=== PATIENT | female | born 1995 | race Caucasian/White ===

== ENCOUNTER 2020-03-25 04:58 | Inpatient (IN) | payer OTHER, SELFPAY ==
[2020-03-25] VITALS (150 sets, daily range): BP systolic 113–165; BP diastolic 53–107; PULSE 64–205; RESP 16; TEMP 36.4–37.2; O2SAT 88–100; BMI 32.8
--- NOTE | 2020-03-25 04:58 | LDADM ---
This patient, Marly Dowell, was admitted to Labor/Delivery/Recovery 103 on 03/25/20 at 04:58. Plans for labor, pain management and were discussed with patient. Patient/family oriented to hospital policies and general routines including ID bracelet, bed and alarms, visiting hours, pain management, procedures, bathroom and other care routines, personal items, smoking policy, room service/diet and guest tray routines, infant security routines, and visiting hours. Patient/Family are encouraged to report perceived risks to care and to ask questions if they do not understand what they are told or what they should do. See OBIX for further documentation.
--- NOTE | 2020-03-25 06:08 | WPDANESEPP ---
Anes - Eval Pre Procedure Procedure: Labor epidural Date/Time: 03/25/20 06:08 Surgeon: michael Preop Diagnosis: pain during labor Pre Op Diagnosis: IOL Patient Data Age: 24 Gender: F Height: 1.75 m Weight: 101 kg Last Vital Signs Pulse 84 03/25/20 06:00 BP 150/103 H 03/25/20 06:00 Allergies Allergy/AdvReac Type Severity Reaction Status Date / Time No Known Allergies Allergy Verified 04/11/15 00:27 Patient hx anesthesia problems: none Family hx anesthesia problems: none PMFSH Social History Social History Smoking packs per day: 1 Smoking cigarettes per day: 20.0 Years smoked: 5 Smoking pack-years: 5.00 Smoking status: Former smoker Substance use: never Gender identity (if verbalized by the patient): Female Sexual Orientation (if Verbalized by the Patient): Straight or Heterosexual Spiritual care concerns: No Exam Day of Procedure 03/25/20 06:08
[2020-03-25 06:24] LABS: Basophils Percent Auto 0.2 % (0.2-1.2); Eosinophils Absolute Auto 0.1 K/mm3 (0-0.3); Eosinophils Percent Auto 0.9 % (0-4.4); Immature Granulocyte Absolute 0.04 K/mm3 (0.00-0.031); Immature Granulocyte Percent A 0.5 % (0-0.5); Lymphocytes Absolute Auto 1.69 K/mm3 (0.9-3.2); Lymphocytes Percent Auto 21.1 % (18.3-44.2); Mean Corpuscular HGB Conc 32.4 g/dl (32-36); Mean Corpuscular Hemoglobin 26.8 pg (26-34); Mean Corpuscular Volume 82.9 fl (80-100); Mean Platelet Volume 9.1 fl (7.4-10.4); Monocytes Absolute Auto 0.5 K/mm3 (0.1-0.6); Monocytes Percent Auto 6.5 % (2.6-8.5); Neutrophils Absolute Auto 5.7 K/mm3 (1.3-6.7); Neutrophils Percent Auto 70.8 % (45.5-73.1); Platelet Count Result 298 k/mm3 (150-375); Red Cell Distribution Width 12.8 % (11.5-14.5)
--- NOTE | 2020-03-25 06:28 | P.HP_ITS ---
H&P: HPI History of Present Illness Date/Time: 03/25/20 06:28 Chief Complaint: iol Narrative: Marly Dowell is a 24 year old female 011 whose last menstrual period was 06/26/2019, EDC is 04/01/2020, confirme d by 8 week ultrasound presents at 39 weeks for induction of labor. She has had mildly elevated blood pressures. She is positive for group B strep. Her cervix is favorable. Review of Systems Review of Systems: All systems reviewed & are unremarkable except as noted in HPI and below PMFSH Social History Social History Smoking packs per day: 1 Smoking cigarettes per day: 20.0 Years smoked: 5 Smoking pack-years: 5.00 Smoking status: Former smoker Substance use: never Gender identity (if verbalized by the patient): Female Sexual Orientation (if Verbalized by the Patient): Straight or Heterosexual Spiritual care concerns: No Meds Home Medications and Allergies Home Medications Medication Instructions Recorded Confirmed Type vit no.[id number] 1 tablet DAILY 03/25/20 03/25/20 History [Classic ] Allergies Allergy/AdvReac Type Severity Reaction Status Date / Time No Known Allergies Allergy Verified 04/11/15 00:27 Vital Signs Vital Signs - 24 hr 03/25/20 05:29 03/25/20 05:30 03/25/20 05:45 Pulse Rate 73 95 81 Blood Pressure 152/99 H 154/97 H 150/90 H 03/25/20 06:00 Pulse Rate 84 Blood Pressure 150/103 H Exam Const: General: no acute distress Eyes: General: appearance normal, both eyes and all related structures Neck: Neck: supple and no JVD Thyroid: thyroid normal Resp: Effort & Inspection: normal respiratory effort Auscultation: clear to auscultation bilaterally Cardio: Rate: regular rate Rhythm: regular rhythm GI: Inspection: non-distended GI Palp: Yes Soft to palpation, No Tenderness to palpation present (GI) and No Guarding due to palpation present (GI) Auscultation: normal bowel sounds : External Female Exam: normal external appearance Speculum Exam - Vagina: normal appearance of the vagina Speculum Exam - Cervix: Cervical os closed (Cervix 3/75/1. AROM clear. FHTs reassuring.) Skin: General skin exam: no rashes or lesions noted Extrem: General: normal to inspection and no edema Psych: Mental Status: mental status grossly normal Affect: normal affect H&P: Results Labs Labs: Short CBC 03/25/20 Range/Units 06:17 WBC 8.0 (4.5-10.0) K/mm3 Hgb 11.0 L (12.0-15.0) g/dL Hct 34.0 L (37.0-47.0) % Plt Count 298 (150-375) k/mm3 Assessment and Plan Additional Plan Impression: Term /positive group B strep Plan: Medical induction of labor. Spontaneous vaginal delivery is expected. Group B strep prophylaxis is being undertaken. She has an epidural candidate
[2020-03-25] MEDS: LACTATED RINGERS 1,000 ML 125 ML IV CONT ×2 (06:30→12:52)
[2020-03-25] MEDS: AMPICILLIN 2 GM/NS 100 ML 2 GM/100 ML BAG IVPB (06:31)
[2020-03-25] MEDS: OXYTOCIN 30 UNITS/NS 500 ML 30 UNITS/500 ML BAG IV CONT (06:31)
[2020-03-25 06:38] LABS: Alanine Aminotransferase 18 U/L (4-35); Albumin Level 3.5 g/dL (3.5-5.1); Alkaline Phosphatase 128 U/L (38-126); Anion Gap 6 mmol/L (8-16); Aspartate Amino Transferase 26 U/L (14-36); Bilirubin,Total 0.5 mg/dL (0.2-1.3); Blood Urea Nitrogen 9 mg/dL (7-17); Carbon Dioxide 23 mmol/L (22-30); Chloride 106 mmol/L (98-107); Estimated CRCL calculation 219 ml/min; Estimated Glomerular Filt Rate > 60; Glucose 81 mg/dL (65-105); Sodium 135 mmol/L (137-145); Uric Acid 5.3 mg/dL (2.5-7.5)
[2020-03-25 07:21] LABS: HIV 1/2 Ab P24 Ag Result Negative (Negative)
[2020-03-25] MEDS: AMPICILLIN 1 GM/NS 50 ML 1 GM/50 ML BAG IVPB ×2 (10:33→14:44)
[2020-03-25 10:49] LABS: Rapid Plasma Reagin Non-Reactive (NonReactive)
--- NOTE | 2020-03-25 11:09 | PM.OBPNVD ---
OB - PN: Subj Subjective Date/time seen: 03/25/20 11:09 cx 4 by rn exam fhts k amp x 2 sofar epidural soon OB - PN: Obj Data Labs CBC & Chem 7: 03/25/20 06:17 03/25/20 06:17 Labs: Laboratory Results - last 24 hr 03/25/20 03/25/20 03/25/20 06:17 06:17 06:17 WBC 8.0 RBC 4.10 L Hgb 11.0 L Hct 34.0 L MCV 82.9 MCH 26.8 MCHC 32.4 RDW 12.8 Plt Count 298 MPV 9.1 Immature Gran % (Auto) 0.5 Neut % (Auto) 70.8 Lymph % (Auto) 21.1 [place] % (Auto) 6.5 Eos % (Auto) 0.9 Baso % (Auto) 0.2 Lymph # (Auto) 1.69 [place] # (Auto) 0.5 Eos # (Auto) 0.1 Baso # (Auto) 0.0 Abs Immat Gran (auto) 0.04 H Absolute Neuts (auto) 5.7 Absolute Nucleated RBC 0.0 Nucleated RBC % 0.0 Sodium Potassium Chloride Carbon Dioxide Anion Gap BUN Creatinine Estim Creat Clear Calc Estimated GFR Glucose Uric Acid 5.3 Calcium Total Bilirubin AST ALT Alkaline Phosphatase Total Protein Albumin RPR HIV 1&2 Ab/P24 Ag 4thGn Negative Blood Type Antibody Screen 03/25/20 03/25/20 03/25/20 06:17 06:17 06:17 WBC RBC Hgb Hct MCV MCH MCHC RDW Plt Count MPV Immature Gran % (Auto) Neut % (Auto) Lymph % (Auto) [place] % (Auto) Eos % (Auto) Baso % (Auto) Lymph # (Auto) [place] # (Auto) Eos # (Auto) Baso # (Auto) Abs Immat Gran (auto) Absolute Neuts (auto) Absolute Nucleated RBC Nucleated RBC % Sodium 135 L Potassium 4.0 Chloride 106 Carbon Dioxide 23 Anion Gap 6 L BUN 9 Creatinine 0.40 L Estim Creat Clear Calc 219 Estimated GFR > 60 Glucose 81 Uric Acid Calcium 9.0 Total Bilirubin 0.5 AST 26 ALT 18 Alkaline Phosphatase 128 H Total Protein 6.0 L Albumin 3.5 RPR Non-reactive HIV 1&2 Ab/P24 Ag 4thGn Blood Type B Positive Antibody Screen Negative OB - PN A/P Time Spent With Patient Time: Total time spent is greater than 50% in coordination of care (as documented) at patient's floor/unit and/or counseling patient:
--- NOTE | 2020-03-25 16:25 | P.PNOB_ITS ---
OB - PN: Subj Subjective Date/time seen: 03/25/20 16:25 cx 7 by rn exam fhts reassuring OB - PN: Obj Data Labs CBC & Chem 7: 03/25/20 06:17 03/25/20 06:17 Labs: Laboratory Results - last 24 hr 03/25/20 03/25/20 03/25/20 06:17 06:17 06:17 WBC 8.0 RBC 4.10 L Hgb 11.0 L Hct 34.0 L MCV 82.9 MCH 26.8 MCHC 32.4 RDW 12.8 Plt Count 298 MPV 9.1 Immature Gran % (Auto) 0.5 Neut % (Auto) 70.8 Lymph % (Auto) 21.1 [place] % (Auto) 6.5 Eos % (Auto) 0.9 Baso % (Auto) 0.2 Lymph # (Auto) 1.69 [place] # (Auto) 0.5 Eos # (Auto) 0.1 Baso # (Auto) 0.0 Abs Immat Gran (auto) 0.04 H Absolute Neuts (auto) 5.7 Absolute Nucleated RBC 0.0 Nucleated RBC % 0.0 Sodium Potassium Chloride Carbon Dioxide Anion Gap BUN Creatinine Estim Creat Clear Calc Estimated GFR Glucose Uric Acid 5.3 Calcium Total Bilirubin AST ALT Alkaline Phosphatase Total Protein Albumin RPR HIV 1&2 Ab/P24 Ag 4thGn Negative Blood Type Antibody Screen 03/25/20 03/25/20 03/25/20 06:17 06:17 06:17 WBC RBC Hgb Hct MCV MCH MCHC RDW Plt Count MPV Immature Gran % (Auto) Neut % (Auto) Lymph % (Auto) [place] % (Auto) Eos % (Auto) Baso % (Auto) Lymph # (Auto) [place] # (Auto) Eos # (Auto) Baso # (Auto) Abs Immat Gran (auto) Absolute Neuts (auto) Absolute Nucleated RBC Nucleated RBC % Sodium 135 L Potassium 4.0 Chloride 106 Carbon Dioxide 23 Anion Gap 6 L BUN 9 Creatinine 0.40 L Estim Creat Clear Calc 219 Estimated GFR > 60 Glucose 81 Uric Acid Calcium 9.0 Total Bilirubin 0.5 AST 26 ALT 18 Alkaline Phosphatase 128 H Total Protein 6.0 L Albumin 3.5 RPR Non-reactive HIV 1&2 Ab/P24 Ag 4thGn Blood Type B Positive Antibody Screen Negative OB - PN A/P Time Spent With Patient Time: Total time spent is greater than 50% in coordination of care (as documented) at patient's floor/unit and/or counseling patient:
--- NOTE | 2020-03-25 19:30 | PM.OBPRVD ---
OB - Delivery Note Procedure Delivery date: 03/25/20 Intrapartal events: None Induction method: AROM Delivery augmentation: pitocin Delivery monitor: external FHT Route of delivery: Episiotomy description: None Laceration Description: None Quantitative Blood Loss (ml): 58 Anesthesia type: Epidural Disposition: floor Complications: amp x 3 for gbs [place] Baby Date of : 03/25/20 Time of : 19:17 Weeks of gestation at delivery: 39 gender: Female Weight (pounds): 7 Weight (ounces): 15 presentation: vertex position: Right Occiput Anterior Placenta delivery description: Spontaneous cord vessel description: 3 Vessels and Clamped/Cut score one minute: 8 score five minutes: 9
[2020-03-25] MEDS: OXYTOCIN 30 UNITS/NS 500 ML 30 UNITS/500 ML BAG 125 UNITS IV CONT (19:42)
[2020-03-25] MEDS: WITCH HAZEL 40 PADS 1 PAD TOPICAL (21:41)
--- NOTE | 2020-03-25 22:00 | OBPPTRN ---
Patient transferred to post room #288 via wheelchair. Support person present. Oriented to unit, room, information board, rooming in, admission packet and security measures. Patient verbalizes understanding. with patient.
[2020-03-26 04:41] LABS: Hemoglobin 10.4 g/dL (12.0-15.0)
--- NOTE | 2020-03-26 07:17 | PM.OBPNVD ---
OB - PN: Subj Subjective Date/time seen: 03/26/20 07:17 Patient comments: no complaints and pain well controlled baby status: doing well and nursing well OB - PN: Obj Data Labs CBC & Chem 7: 03/26/20 04:07 03/25/20 06:17 Labs: Laboratory Results - last 24 hr 03/25/20 03/25/20 03/25/20 06:17 06:17 06:17 Hgb Hct RPR Non-reactive HIV 1&2 Ab/P24 Ag 4thGn Negative Blood Type B Positive Antibody Screen Negative 03/26/20 04:07 Hgb 10.4 L Hct 32.0 L RPR HIV 1&2 Ab/P24 Ag 4thGn Blood Type Antibody Screen OB - PN A/P Plan day: 1 Plan: routine care Time Spent With Patient Time: Total time spent is greater than 50% in coordination of care (as documented) at patient's floor/unit and/or counseling patient: Time with patient: less than 15 minutes Review of Systems Review of Systems: All systems reviewed & are unremarkable except as noted in HPI and below Exam Const: General: no acute distress Eyes: General: appearance normal, both eyes and all related structures Neck: Neck: supple and no JVD Thyroid: thyroid normal Resp: Effort & Inspection: normal respiratory effort Auscultation: clear to auscultation bilaterally Cardio: Rate: regular rate Rhythm: regular rhythm GI: Inspection: non-distended GI Palp: Yes Soft to palpation, No Tenderness to palpation present (GI) and No Guarding due to palpation present (GI) Auscultation: normal bowel sounds : General: Yes bladder normal to palpation External Female Exam: normal external appearance Speculum Exam - Vagina: normal vaginal discharge and No vaginal bleeding Speculum Exam - Cervix: nontender Bimanual exam- vagina & uterus: bladder normal to palpation and No Cervical tenderness present OB/external & speculum: No vaginal bleeding Skin: General skin exam: no rashes or lesions noted Extrem: General: normal to inspection and no edema Psych: Mental Status: mental status grossly normal Affect: normal affect
[2020-03-26 08:00] VITALS: BP 149/91; PULSE 86; RESP 20; TEMP 36.6
[2020-03-26] MEDS: MULTIVIT/MIN/PREN/FOL AC/IRON TABLET 1 TAB PO (08:21)
[2020-03-26] MEDS: DOCUSATE SODIUM 100 MG CAPSULE PO ×2 (08:21→16:40)
--- NOTE | 2020-03-26 08:54 | WPDANLDPN2 ---
Anes-Prog Note L&D Date/Time: 03/26/20 08:54 Comfortable throughout: labor and delivery Neuraxial method: epidural Epidural/Spinal procedure site: clean & non-tender Neuro status: Neuro function grossly intact. Cardiovascular status: normal Respiratory status: normal Airway patency: baseline Mental status: baseline Post-Op hydration status: normal Vital Signs: Last Vital Signs Temp 98.2 F 03/25/20 22:00 Pulse 89 03/25/20 22:00 Resp 16 03/25/20 22:00 BP 142/80 H 03/25/20 22:00 Pulse Ox 99 03/25/20 22:00 Pain score (VAS): 0/10 I/O: Intake & Output 03/25/20 03/26/20 03/26/20 23:59 07:59 15:59 Intake Total 1500 Output Total 145 Balance 1355 Post-procedural complaints: none Patient feedback: Patient satisfied with anesthetic care.
--- NOTE | 2020-03-26 12:22 | PC.NURSE ---
Consulted with patient, reviewed feeding cues, frequencies, duration of feedings, feeding elimination flow sheet, and signs of adequate intake. Mother verbalizes she is able to independently latch with appropriate positioning/alignment. She denies any nipple discomfort, is feeding as required and waking infant to feed if needed. Instructed mother to call out for RN assistance if she is unable to latch infant for feeding or she has discomfort with nursing. Mother voiced understanding of information shared. Information on outpatient services provided. Mother has no further questions at this time.
[2020-03-26] MEDS: IBUPROFEN 600 MG TABLET PO (16:39)
[2020-03-26] MEDS: BENZOCAINE 20% AER SPR (*SP) 56 GM CAN 1 SPRAY TOPICAL (16:40)
[2020-03-26] MEDS: WITCH HAZEL 40 PADS 1 PAD TOPICAL (16:40)
[2020-03-26 20:00] VITALS: BP 143/97; PULSE 77; RESP 16; TEMP 36.6; O2SAT 100
[2020-03-27] VITALS: BP 153/99; PULSE 77
[2020-03-27 04:30] VITALS: BP 140/101
--- NOTE | 2020-03-27 07:23 | PM.OBPNVD ---
OB - PN: Subj Subjective Date/time seen: 03/27/20 07:23 Patient comments: no complaints and pain well controlled baby status: doing well and nursing well OB - PN: Obj Data Labs CBC & Chem 7: 03/26/20 04:07 03/25/20 06:17 OB - PN A/P Plan day: 2 Plan: routine care, discharge home and follow up 6 weeks (2 weeks) Comments: start labetolol 100 bid Time Spent With Patient Time: Total time spent is greater than 50% in coordination of care (as documented) at patient's floor/unit and/or counseling patient: Time with patient: less than 15 minutes Review of Systems Review of Systems: All systems reviewed & are unremarkable except as noted in HPI and below Exam Const: General: no acute distress Eyes: General: appearance normal, both eyes and all related structures Neck: Neck: supple and no JVD Thyroid: thyroid normal Resp: Effort & Inspection: normal respiratory effort Auscultation: clear to auscultation bilaterally Cardio: Rate: regular rate Rhythm: regular rhythm GI: Inspection: non-distended GI Palp: Yes Soft to palpation, No Tenderness to palpation present (GI) and No Guarding due to palpation present (GI) Auscultation: normal bowel sounds : General: Yes bladder normal to palpation External Female Exam: normal external appearance Speculum Exam - Vagina: normal vaginal discharge and No vaginal bleeding Speculum Exam - Cervix: nontender Bimanual exam- vagina & uterus: bladder normal to palpation and No Cervical tenderness present OB/external & speculum: No vaginal bleeding Skin: General skin exam: no rashes or lesions noted Extrem: General: normal to inspection and no edema Psych: Mental Status: mental status grossly normal Affect: normal affect
--- NOTE | 2020-03-27 07:24 | PM.DS ---
DS: Admitting Diagnosis Admitting Diagnosis Admitting Diagnosis: term/gest htn DS: Summary Hospital Course Hospital Course: see dictation Time Spent with Patient Time attestation: Total time spent providing and/or coordinating discharge services: Patient was admitted for induction of labor. She had unremarkable spontaneous vaginal delivery. She received adequate group B strep prophylaxis. Her hospital course was unremarkable. She did have some elevated blood pressures on day 2 and was begun on labetalol 100 b.i.d.. Exam Const: General: no acute distress Eyes: General: appearance normal, both eyes and all related structures Neck: Neck: supple and no JVD Thyroid: thyroid normal Resp: Effort & Inspection: normal respiratory effort Auscultation: clear to auscultation bilaterally Cardio: Rate: regular rate Rhythm: regular rhythm GI: Inspection: non-distended GI Palp: Yes Soft to palpation, No Tenderness to palpation present (GI) and No Guarding due to palpation present (GI) Auscultation: normal bowel sounds : General: Yes bladder normal to palpation External Female Exam: normal external appearance Speculum Exam - Vagina: normal vaginal discharge and No vaginal bleeding Speculum Exam - Cervix: nontender Bimanual exam- vagina & uterus: bladder normal to palpation and No Cervical tenderness present OB/external & speculum: No vaginal bleeding Skin: General skin exam: no rashes or lesions noted Extrem: General: normal to inspection and no edema Psych: Mental Status: mental status grossly normal Affect: normal affect Discharge Plan Discharge Attending physician on discharge: Reilly Gonzalez Discharging Clinician: Reilly Gonzalez Patient Disposition: Home, Self-Care Activity: may shower, no straining and pelvic rest Diet: heart healthy Patient Instructions: Antibiotic Form Stand Alone Forms: General Discharge Information Follow-up/Referrals: Reilly Gonzalez MD [Physician] - Discharge Medications: New labetalol 100 mg tablet 100 mg PO Q12H Qty: 60 RF: 0 No Action Classic 28 mg iron- 800 mcg Tablet 1 tablet DAILY RF: 0 Date of admission: 03/25/20 04:58 Primary Care Provider: PHYSICIAN,FITNESS LEADER Admitting Provider: Reilly Gonzalez Attending physician on admission: Reilly Gonzalez Condition: Stable
[2020-03-27 08:30] VITALS: PULSE 84; RESP 16; O2SAT 99
[2020-03-27 08:40] VITALS: BP 146/79; PULSE 84; RESP 16; TEMP 37; O2SAT 99
--- NOTE | 2020-03-27 09:31 | WPDANLDPN2 ---
Anes-Prog Note L&D Date/Time: 03/27/20 09:31 Comfortable throughout: labor and delivery Neuraxial method: epidural Epidural/Spinal procedure site: clean & non-tender Neuro status: Neuro function grossly intact. Cardiovascular status: normal Respiratory status: normal Airway patency: baseline Mental status: baseline Post-Op hydration status: normal Vital Signs: Last Vital Signs Temp 36.6 C 03/26/20 20:00 Pulse 77 03/27/20 00:00 Resp 16 03/26/20 20:00 BP 140/101 H 03/27/20 04:30 Pulse Ox 100 03/26/20 20:00 Pain score (VAS): 0 Post-procedural complaints: none Patient feedback: Patient satisfied with anesthetic care.
--- NOTE | 2020-03-27 09:47 | PC.NURSE ---
Mother verbalizes she is able to independently latch with appropriate positioning/alignment. States she has minimal nipple discomfort, is feeding as required and waking infant to feed if needed. Infant has had 9 effective feedings in the past 24 hours as well as 2 bottle feeds per mom's choice, and is currently meeting outcomes for weight, output, jaundice and feeding frequencies. Mother states she feels confident to continue effective at home. Reviewed transition to breast milk, signs of adequate intake, and engorgement/relief. Instructed to call ICP if intake/output less than required. Reviewed community resources on the [facility] website and in the Mom/Baby guide. Information on outpatient services provided. Mother has no further questions at this time.
[2020-03-27] MEDS: MULTIVIT/MIN/PREN/FOL AC/IRON TABLET 1 TAB PO (10:26)
[2020-03-27 10:27] VITALS: PULSE 84
[2020-03-27] MEDS: LABETALOL HCL 100 MG TABLET PO (10:27)
[2020-03-27] MEDS: IBUPROFEN 600 MG TABLET PO (10:28)
--- NOTE | 2020-03-27 10:46 | PC.NURSE ---
Consulted with patient, reviewed feeding cues, frequencies, duration of feedings, feeding elimination flow sheet, and signs of adequate intake. Mom independently latched to breast. Reviewed positioning/alignment, holding breast and asymmetrical latch on. was able to latch correctly. Infant nursed eagerly, with steady draws and frequent swallowing noted. Reviewed signs of a correct latch and how to adjust latch once is on the breast. was able to maintain latch without discomfort to mother. Instructed mother to call out for RN assistance if she is unable to latch infant for feeding or she has discomfort with nursing. Mother voiced understanding of information shared.
--- NOTE | 2020-03-27 10:54 | PC.NURSE ---
Patient viewed the discharge video Mother & Baby Care, The First Two Weeks . Patient was given the opportunity and encouraged to ask questions. Patient verbalized understanding of information shared and has been given the mother/baby guide for home reference.
[2020-03-27] MEDS: TETANUS,DIPHTHERIA,AC PERTUSSIS ADULT (0.5 ML) BOOSTRIX IM (11:43)
[2020-03-29 09:21] VITALS: BP 142/86; PULSE 85; RESP 14; TEMP 36.5; O2SAT 98
== END 2020-03-27 11:52 | disposition home or self-care (01) | DRG 807 ==
LOC: ANHLDR 05:03 → ANHOB2 22:11
PROVIDERS: Admitting Provider Obstetrics & Gynecology; Visit Provider Obstetrics & Gynecology
DX: O13.4 Gestational [pregnancy-induced] hypertension without significant proteinuria, complicating childbirth (principal); Z37.0 Single live birth; Z3A.39 39 weeks gestation of pregnancy; O99.824 Streptococcus B carrier state complicating childbirth; O36.8330 Maternal care for abnormalities of the fetal heart rate or rhythm, third trimester, not applicable or unspecified
CPT/HCPCS: 36415; 80053; 84550; 85014; 85018; 85025; 86592; 86703; 86850; 86900; 86901; 90715; A9270; G0432; J0290; J2590; J2795; J7120

== ENCOUNTER 2021-11-13 05:54 | Inpatient (IN) | payer OTHER, SELFPAY ==
[2021-11-13] VITALS (134 sets, daily range): BP systolic 120–162; BP diastolic 67–106; PULSE 49–161; RESP 18; TEMP 36.6–37.4; O2SAT 81–100; BMI 30.2
--- NOTE | 2021-11-13 06:12 | PM.IMHP ---
H&P: HPI History of Present Illness Date/Time: 11/13/21 06:12 Chief Complaint: elevated blood pressures at 37 and 6 7th weeks Narrative: this is a 26-year-old multiparous whose EDC is consistent with 37 and 6 7th weeks gestation for induction of labor secondary to elevated blood pressures. Her last 3 visits a pad diastolics rising in the 90s up to 100. She denies headaches or blurred vision. She will have PIH strap labs drawn. She is positive for group B strep PMF Family History Family History Other No pertinent family history Social History Social History Smoking packs per day: 1 Smoking cigarettes per day: 20.0 Years smoked: 5 Smoking pack-years: 5.00 Smoking status: Former smoker Substance use: never Gender identity (if verbalized by the patient): Female Sexual Orientation (if Verbalized by the Patient): Straight or Heterosexual Spiritual care concerns: No Meds Home Medications and Allergies Home Medications Medication Instructions Recorded Confirmed Type vits no.126-ferrous fum 1 tablet DAILY 03/25/20 03/25/20 History 28 mg iron-folic acid 800 mcg tablet (Classic ) Allergies Allergy/AdvReac Type Severity Reaction Status Date / Time No Known Allergies Allergy Verified 11/07/21 15:32 Assessment and Plan Assessment and plan (1) HTN (hypertension): Code(s): I10 - Essential (primary) hypertension Status: Acute (2) Term : Code(s): Z34.90 - Encounter for supervision of normal , unspecified, unspecified trimester Status: Acute Plan group B strep prophylaxis. Medical induction of labor. Spontaneous vaginal delivery is expected. She has an epidural candidate
--- NOTE | 2021-11-13 06:14 | WPDANESEPP ---
Anes - Eval Pre Procedure Procedure: Labor epidural <Scott Menjivar CRNA - Last Filed: 11/13/21 06:14> Date/Time: 11/13/21 06:14 <Scott Julio C Menjivar CRNA - Last Filed: 11/13/21 06:14> Surgeon: Abd pain with contractions <Scott Julio C Menjivar CRNA - Last Filed: 11/13/21 06:14> Pre Op Diagnosis: IOL <Scott Julio C Menjivar CRNA - Last Filed: 11/13/21 06:14> Patient Data Age: 26 Gender: F Height: Weight: <Scott Julio C Menjivar CRNA - Last Filed: 11/13/21 06:14> Allergies Allergy/AdvReac Type Severity Reaction Status Date / Time No Known Allergies Allergy Verified 11/07/21 15:32 <Scott Julio C Menjivar CRNA - Last Filed: 11/13/21 06:14> Home Medications Medication Instructions Recorded Confirmed Type vits no.126-ferrous fum 1 tablet PO DAILY 03/25/20 11/13/21 History 28 mg iron-folic acid 800 mcg tablet (Classic ) <Scott Menjivar CRNA - Last Filed: 11/13/21 06:14> Patient hx anesthesia problems: none <Elysia Panchal CRNA - Last Filed: 11/13/21 13:20> Family hx anesthesia problems: none <Elysia Panchal CRNA - Last Filed: 11/13/21 13:20> Results Review: All pre-operative results and documents have been reviewed as part of the pre-operative evaluation. <Scott Menjivar CRNA - Last Filed: 11/13/21 06:14> [facility] Family History Family History: Family History Other No pertinent family history <Scott Menjivar CRNA - Last Filed: 11/13/21 06:14> Social History Social History: Social History Smoking packs per day: 1 Smoking cigarettes per day: 20.0 Years smoked: 5 Smoking pack-years: 5.00 Smoking status: Former smoker Tobacco type: cigarettes Second hand tobacco smoke exposure: Yes Substance use: never Gender identity (if verbalized by the patient): Female Sexual Orientation (if Verbalized by the Patient): Straight or Heterosexual Spiritual care concerns: No <Scott Menjivar CRNA - Last Filed: 11/13/21 06:14> Exam Day of Procedure 11/13/21 06:14 <Scott Menjivar CRNA - Last Filed: 11/13/21 06:14>
[2021-11-13 06:33] LABS: Basophils Percent Auto 0.2 % (0.2-1.2); Eosinophils Absolute Auto 0.1 K/mm3 (0-0.3); Eosinophils Percent Auto 0.8 % (0-4.4); Hematocrit 32.9 % (37.0-47.0); Hemoglobin 10.5 g/dL (12.0-15.0); Immature Granulocyte Absolute 0.04 K/mm3 (0.00-0.031); Immature Granulocyte Percent A 0.6 % (0-0.5); Lymphocytes Absolute Auto 1.42 K/mm3 (0.9-3.2); Lymphocytes Percent Auto 22.9 % (18.3-44.2); Mean Corpuscular HGB Conc 31.9 g/dl (32-36); Mean Corpuscular Hemoglobin 26.5 pg (26-34); Mean Corpuscular Volume 83.1 fl (80-100); Mean Platelet Volume 8.7 fl (7.4-10.4); Monocytes Absolute Auto 0.4 K/mm3 (0.1-0.6); Monocytes Percent Auto 6.8 % (2.6-8.5); Neutrophils Absolute Auto 4.3 K/mm3 (1.3-6.7); Neutrophils Percent Auto 68.7 % (45.5-73.1); Platelet Count Result 277 k/mm3 (150-375); Red Blood Count 3.96 M/mm3 (4.2-5.4); Red Cell Distribution Width 12.8 % (11.5-14.5); White Blood Count 6.2 K/mm3 (4.5-10.0)
[2021-11-13] MEDS: LACTATED RINGERS 1,000 ML 125 ML IV CONT ×2 (06:39→14:37)
[2021-11-13] MEDS: AMPICILLIN 2 GM/NS 100 ML 2 GM/100 ML BAG IVPB (06:40)
[2021-11-13] MEDS: OXYTOCIN 30 UNITS/NS 500 ML 30 UNITS/500 ML BAG IV CONT (06:42)
[2021-11-13 06:47] LABS: Alanine Aminotransferase 17 U/L (6-35); Albumin Level 3.5 g/dL (3.5-5.1); Alkaline Phosphatase 142 U/L (38-126); Anion Gap 10 mmol/L (8-16); Aspartate Amino Transferase 24 U/L (14-36); Bilirubin,Total 0.4 mg/dL (0.2-1.3); Blood Urea Nitrogen 14 mg/dL (7-17); Calcium 8.5 mg/dL (8.4-10.2); Carbon Dioxide 18 mmol/L (22-30); Chloride 105 mmol/L (98-107); Estimated Glomerular Filt Rate > 60; Glucose 96 mg/dL (65-110); Potassium 3.8 mmol/L (3.4-5.0); Sodium 133 mmol/L (137-145)
--- NOTE | 2021-11-13 06:56 | LDADM ---
This patient, Marly Dowell, was admitted to Labor/Delivery/Recovery 107 on 11/13/21 at 05:54. Plans for labor, pain management and were discussed with patient. Patient/family oriented to hospital policies and general routines including ID bracelet, bed and alarms, visiting hours, pain management, procedures, bathroom and other care routines, personal items, smoking policy, room service/diet and guest tray routines, infant security routines, and visiting hours. Patient/Family are encouraged to report perceived risks to care and to ask questions if they do not understand what they are told or what they should do. See OBIX for further documentation.
[2021-11-13 07:14] LABS: Uric Acid 5.6 mg/dL (2.5-7.5)
[2021-11-13 08:47] LABS: Rapid Plasma Reagin Non-Reactive (NonReactive)
[2021-11-13] MEDS: AMPICILLIN 1 GM/NS 50 ML 1 GM/50 ML BAG IVPB ×2 (10:25→14:31)
--- NOTE | 2021-11-13 11:16 | PM.OBPNLAB ---
Pain Control Date/time seen: 11/13/21 11:16 Pain control: tolerating well Pelvic Exam Dilation (cm): 3 Effacement (%): 80 station: -1 Amniotic membrane status: Leaking
[2021-11-13] MEDS: LACTATED RINGERS 1,000 ML 999 ML IV CONT (12:19)
--- NOTE | 2021-11-13 17:46 | PM.OBPRVD ---
OB - Delivery Note Procedure Delivery date: 11/13/21 Procedure: mil Events: Chronic Hypertension Induction method: AROM Delivery augmentation: Pitocin Delivery monitor: External FHT and Internal Uterine Route of delivery: Episiotomy description: None Laceration Description: None Specimen: No Quantitative Blood Loss (ml): 59 Anesthesia type: Epidural Disposition: Floor [place] Baby Date of : 11/13/21 Weeks of gestation at delivery: 37 Weight (pounds): 6 Weight (ounces): 6 presentation: vertex position: Right Occiput Anterior Placenta delivery description: Spontaneous Cord Vessel Description: 3 Vessels, Nuchal Cord and Loose score one minute: 8 score five minutes: 9 Narrative: amp x 3 for gbs
[2021-11-13] MEDS: OXYTOCIN 30 UNITS/NS 500 ML 30 UNITS/500 ML BAG 125 UNITS IV CONT (18:21)
--- NOTE | 2021-11-13 20:36 | OBPPTRN ---
Patient transferred to post room #288 via (wheelchair). Support person present. Oriented to unit, room, information board, rooming in, admission packet and security measures. Patient verbalizes understanding.
[2021-11-13] MEDS: IBUPROFEN 600 MG TABLET PO (22:13)
[2021-11-13] MEDS: LANOLIN (LANSINOH) 7.5 GM CREAM 1 APPLIC TOPICAL (22:15)
[2021-11-13] MEDS: DOCUSATE SODIUM 100 MG CAPSULE PO (22:15)
[2021-11-14] VITALS (8 sets, daily range): BP systolic 134–146; BP diastolic 69–102; PULSE 62–75; RESP 16–18; TEMP 36.4–37.3; O2SAT 98–100
[2021-11-14] MEDS: ACETAMINOPHEN 325 MG TABLET 650 MG PO (03:03)
[2021-11-14 05:35] LABS: Hematocrit 33.3 % (37.0-47.0); Hemoglobin 10.6 g/dL (12.0-15.0)
--- NOTE | 2021-11-14 07:11 | PM.OBPNVD ---
OB - PN: Subj Subjective Date/time seen: 11/14/21 07:11 Patient comments: no complaints and pain well controlled baby status: doing well and nursing well OB - PN: Obj Data Labs CBC & Chem 7: 11/14/21 04:52 11/13/21 06:25 Labs: Laboratory Results - last 24 hr 11/13/21 11/13/21 11/13/21 06:25 06:25 06:25 Hgb Hct Uric Acid 5.6 RPR Non-reactive Blood Type B Positive Antibody Screen Negative 11/14/21 04:52 Hgb 10.6 L Hct 33.3 L Uric Acid RPR Blood Type Antibody Screen OB - PN A/P Plan day: 1 Plan: routine care Time Spent With Patient Time: Total time spent is greater than 50% in coordination of care (as documented) at patient's floor/unit and/or counseling patient: Time with patient: less than 15 minutes
[2021-11-14] MEDS: DOCUSATE SODIUM 100 MG CAPSULE PO (09:45)
[2021-11-14] MEDS: LABETALOL HCL 100 MG TABLET PO ×2 (09:45→20:59)
[2021-11-14] MEDS: MULTIVIT/MIN/PREN/FOL AC/IRON TABLET 1 TAB PO (09:45)
--- NOTE | 2021-11-14 12:52 | WPDANLDPN2 ---
Anes-Prog Note L&D Date/Time: 11/14/21 12:52 Comfortable throughout: labor and delivery Neuraxial method: epidural Epidural/Spinal procedure site: clean & non-tender Neuro status: Neuro function grossly intact. Cardiovascular status: normal Respiratory status: normal Airway patency: baseline Mental status: baseline Post-Op hydration status: normal Vital Signs: Last Vital Signs Temp 37.3 C 11/14/21 08:00 Pulse 72 11/14/21 09:45 Resp 16 11/14/21 08:00 BP 134/98 H 11/14/21 08:00 Pulse Ox 98 11/14/21 08:00 O2 Del Method Room Air 11/14/21 08:00 Pain score (VAS): 04/06 I/O: Intake & Output 11/13/21 11/14/21 11/14/21 23:59 07:59 15:59 Output Total 6449 120 352 Balance -[phone] -[phone] -442 Post-procedural complaints: none Patient feedback: Patient satisfied with anesthetic care.
[2021-11-15 04:50] VITALS: BP 123/85; PULSE 74; RESP 18; TEMP 36.6; O2SAT 98
--- NOTE | 2021-11-15 06:48 | P.DS_ITS ---
DS: Admitting Diagnosis Discharge Date 11/15/2021 Admitting Diagnosis term . Gestational hypertension DS: Discharge Diagnosis Discharge Diagnosis (1) Term : Code(s): Z34.90 - Encounter for supervision of normal , unspecified, unspecified trimester Status: Acute (2) HTN (hypertension): Code(s): I10 - Essential (primary) hypertension Status: Acute DS: Summary Hospital Course Reason for hospitalization: the patient was admitted at 37 and 6 7th weeks gestation for induction of labor secondary to elevated blood pressure Hospital Course: she underwent successful induction of labor. Her hospital course was unremarkable. She did require labetalol 100mg twice a day for blood pressure c ontrol. She was , voiding without difficulty, ambulating, eating regular diet, and generally without Time Spent with Patient Time attestation: Total time spent providing and/or coordinating discharge services: Discharge Plan Discharge Attending physician on discharge: Reilly Soliz Discharging Clinician: Reilly Soliz Patient Disposition: Home, Self-Care Activity: may shower, no straining and pelvic rest Diet: heart healthy Wound Care Instructions: follow printed instructions Patient Instructions: Antibiotic Form Stand Alone Forms: General Discharge Information Follow-up/Referrals: Reilly Soliz MD [Physician] - Discharge Medications: New labetalol 100 mg tablet 100 mg PO Q12H Qty: 60 0RF No Action Classic 28 mg iron- 800 mcg Tablet 1 tablet PO DAILY Date of admission: 11/13/21 05:54 Primary Care Provider: PHYSICIAN,DIESEL ENGINE PIPE FITTER Admitting Provider: Reilly Soliz Attending physician on admission: Reilly Soliz Condition: Stable
--- NOTE | 2021-11-15 06:53 | PM.OBPNVD ---
OB - PN: Subj Subjective Date/time seen: 11/15/21 06:53 Patient comments: no complaints and pain well controlled baby status: doing well and nursing well OB - PN: Obj Data Labs CBC & Chem 7: 11/14/21 04:52 11/13/21 06:25 OB - PN A/P Plan day: 2 Plan: routine care, discharge home and follow up 6 weeks (2) Time Spent With Patient Time: Total time spent is greater than 50% in coordination of care (as documented) at patient's floor/unit and/or counseling patient: Time with patient: less than 15 minutes
[2021-11-15 08:00] VITALS: BP 139/85; PULSE 69; RESP 18; TEMP 36.3; O2SAT 99
[2021-11-15] MEDS: MULTIVIT/MIN/PREN/FOL AC/IRON TABLET 1 TAB PO (08:17)
[2021-11-15] MEDS: IBUPROFEN 600 MG TABLET PO (08:17)
[2021-11-15 08:18] VITALS: PULSE 69
[2021-11-15] MEDS: LABETALOL HCL 100 MG TABLET PO (08:18)
--- NOTE | 2021-11-15 09:10 | PC.NURSE ---
Patient instructed on viewing the discharge video Mother & Baby Care, The First Two Weeks . Patient was given the opportunity and encouraged to ask questions. Patient verbalized understanding of information shared and has been given the mother/baby guide for home reference.
[2021-11-16 10:25] VITALS: BP 137/86; PULSE 80; RESP 20; TEMP 36.9; O2SAT 99
== END 2021-11-15 09:35 | disposition home or self-care (01) | DRG 807 ==
LOC: ANHLDR 05:59 → ANHOB2 20:46
PROVIDERS: Admitting Provider Obstetrics & Gynecology; Visit Provider Obstetrics & Gynecology
DX: O13.4 Gestational [pregnancy-induced] hypertension without significant proteinuria, complicating childbirth (principal); Z37.0 Single live birth; O99.824 Streptococcus B carrier state complicating childbirth; O77.0 Labor and delivery complicated by meconium in amniotic fluid; O69.81X0 Labor and delivery complicated by cord around neck, without compression, not applicable or unspecified; Z3A.37 37 weeks gestation of pregnancy
CPT/HCPCS: 36415; 80053; 84550; 85014; 85018; 85025; 86592; 86850; 86900; 86901; A9270; J0290; J2590; J2795; J7120

== ENCOUNTER 2023-07-28 04:47 | Inpatient (IN) | payer OTHER, SELFPAY ==
[2023-07-28] VITALS (109 sets, daily range): BP systolic 129–150; BP diastolic 68–99; PULSE 44–152; RESP 16–18; TEMP 36.4–37.1; O2SAT 94–100
--- NOTE | 2023-07-28 05:20 | LDADM ---
This patient, Marly Dowell, was admitted to Labor/Delivery/Recovery 104 on 07/28/23 at 04:47. Plans for labor, pain management and were discussed with patient. Patient/family oriented to hospital policies and general routines including ID bracelet, bed and alarms, visiting hours, pain management, procedures, bathroom and other care routines, personal items, smoking policy, room service/diet and guest tray routines, infant security routines, and visiting hours. Patient/Family are encouraged to report perceived risks to care and to ask questions if they do not understand what they are told or what they should do. See OBIX for further documentation.
[2023-07-28 05:25] LABS: Basophils Percent Auto 0.2 % (0.2-1.2); Eosinophils Percent Auto 0.2 % (0-4.4); Hematocrit 32.3 % (37.0-47.0); Hemoglobin 10.2 g/dL (12.0-15.0); Immature Granulocyte Absolute 0.03 K/mm3 (0.00-0.031); Immature Granulocyte Percent A 0.5 % (0-0.5); Lymphocytes Absolute Auto 0.82 K/mm3 (0.9-3.2); Lymphocytes Percent Auto 14.4 % (18.3-44.2); Mean Corpuscular HGB Conc 31.6 g/dl (32-36); Mean Corpuscular Hemoglobin 24.9 pg (26-34); Mean Corpuscular Volume 78.8 fl (80-100); Mean Platelet Volume 8.9 fl (7.4-10.4); Monocytes Absolute Auto 0.5 K/mm3 (0.1-0.6); Monocytes Percent Auto 9.1 % (2.6-8.5); Neutrophils Absolute Auto 4.3 K/mm3 (1.3-6.7); Neutrophils Percent Auto 75.6 % (45.5-73.1); Platelet Count Result 226 k/mm3 (150-375); Red Cell Distribution Width 14.2 % (11.5-14.5); White Blood Count 5.7 K/mm3 (4.5-10.0)
[2023-07-28 05:35] LABS: Uric Acid 5.2 mg/dL (2.5-7.5)
[2023-07-28 05:42] LABS: Alanine Aminotransferase 20 U/L (6-35); Albumin Level 3.8 g/dL (3.5-5.1); Alkaline Phosphatase 152 U/L (38-126); Anion Gap 8 mmol/L (4-12); Aspartate Amino Transferase 27 U/L (14-36); Bilirubin,Total 0.5 mg/dL (0.2-1.3); Blood Urea Nitrogen 8 mg/dL (7-17); Calcium 9.3 mg/dL (8.4-10.2); Carbon Dioxide 19 mmol/L (22-30); Chloride 109 mmol/L (98-107); Estimated CRCL calculation 202 ml/min; Estimated Glomerular Filt Rate > 60; Glucose 86 mg/dL (65-110); Potassium 3.8 mmol/L (3.4-5.0); Sodium 136 mmol/L (137-145)
--- NOTE | 2023-07-28 06:12 | PM.IMHP ---
H&P: HPI History of Present Illness Date/Time: 07/28/23 06:12 Chief Complaint: Elevated blood pressure at term Narrative: 28-year-old 5 para 3 whose EDC posterior at 38 weeks gestation with a admitted for induction of labor secondary to elevated blood pressures. She had a history previous gestational hypertension this is been no different. She denies headaches or blurred vision PIH labs to be drawn. Her cervix is favorable she has an early ultrasound confirming dates PMFSH Family History Family History Other No pertinent family history Social History Social History Smoking packs per day: 1 Smoking cigarettes per day: 20.0 Years smoked: 5 Smoking pack-years: 5.00 Smoking status: Former smoker Tobacco type: cigarettes Second hand tobacco smoke exposure: Yes Substance use: never Do You Feel Safe in your Home?: Yes Lack of Transportation: YES Lack of Food: Never True Current Housing: I Have Housing Concerned About Future Housing: No Difficulty Paying Gas/Electric Bills: No Difficulty Paying for Meds: No Currently Unemployed: No Education: Associate Degree Difficulty w/ Childcare or Family Care: No Gender identity (if verbalized by the patient): Female Sexual Orientation (if Verbalized by the Patient): Straight or Heterosexual Spiritual care concerns: No Meds Home Medications and Allergies Home Medications Medication Instructions Recorded Confirmed Type vits no.126-ferrous fum 1 tablet PO DAILY 03/25/20 11/13/21 History 28 mg iron-folic acid 800 mcg tablet (Classic ) labetalol 100 mg tablet 100 mg PO Q12H #60 tabs 11/15/21 Rx Allergies Allergy/AdvReac Type Severity Reaction Status Date / Time No Known Allergies Allergy Verified 11/07/21 15:32 Vital Signs Vital Signs - 24 hr 07/28/23 05:13 07/28/23 05:32 07/28/23 06:00 Pulse Rate 83 82 Blood Pressure 140/90 148/84 H Oxygen Delivery Room Air Exam Const: General: cooperative, healthy appearing and comfortable Nutritional Appearance: average body habitus Orientation/consciousness: oriented to person, oriented to place and oriented to time HENMT: Head: normal to inspection Resp: Effort & Inspection: normal respiratory effort Cardio: Rate: regular rate Rhythm: regular rhythm Heart sounds: S1 normal heart sound present and S2 normal heart sound present GI: Inspection: normal to inspection ( soft gravid uterus) : External Female Exam: normal external appearance Speculum Exam - Vagina: normal appearance of the vagina Speculum Exam - Cervix: normal appearance of the cervix ( cervix 3/60/2. AROM clear. FHT is reassuring.) H&P: Results Labs Labs: Short CBC 07/28/23 Range/Units 05:05 WBC 5.7 (4.5-10.0) K/mm3 Hgb 10.2 L (12.0-15.0) g/dL Hct 32.3 L (37.0-47.0) % Plt Count 226 (150-375) k/mm3 BMP 07/28/23 05:05 Sodium 136 L Potassium 3.8 Chloride 109 H Carbon Dioxide 19 L BUN 8 D Creatinine 0.40 L Glucose 86 Calcium 9.3 Liver Function 07/28/23 Range/Units 05:05 Total Bilirubin 0.5 (0.2-1.3) mg/dL AST 27 (14-36) U/L ALT 20 (6-35) U/L Alkaline Phosphatase 152 H (38-126) U/L Albumin 3.8 (3.5-5.1) g/dL Assessment and Plan Assessment and plan (1) Term : Code(s): Z34.90 - Encounter for supervision of normal , unspecified, unspecified trimester Status: Acute (2) Gestational hypertension: Code(s): O13.9 - Gestational [-induced] hypertension without significant proteinuria, unspecified trimester Status: Acute Plan will check PIH labs. Medical induction of labor. Spontaneous vaginal delivery is expected. She is an epidural candidate if she chooses
[2023-07-28] MEDS: LACTATED RINGERS 1,000 ML 125 ML IV CONT (10:03)
[2023-07-28] MEDS: OXYTOCIN 30 UNITS/NS 500 ML 30 UNITS/500 ML BAG IV CONT (10:04)
--- NOTE | 2023-07-28 12:23 | PM.OBPNLAB ---
Pain Control Date/time seen: 07/28/23 12:23 Pain control: tolerating well Pelvic Exam Dilation (cm): 5 Effacement (%): 90 station: -1 Amniotic membrane status: Leaking
[2023-07-28] MEDS: SODIUM CHLORIDE 0.9% IV 300 ML 600 ML I-UTERINE (15:50)
--- NOTE | 2023-07-28 16:22 | PM.OBPNLAB ---
Pain Control Date/time seen: 07/28/23 16:22 Pain control: tolerating well Pelvic Exam Dilation (cm): 8 Effacement (%): 90 station: -1 Amniotic membrane status: Leaking Contractions Monitor mode: Internal
--- NOTE | 2023-07-28 16:53 | PM.OBPRVD ---
OB - Vaginal Delivery Note Procedure Delivery date: 07/28/23 Events: Gestational Hypertension Induction method: AROM Delivery augmentation: Pitocin Delivery monitor: External FHT and Internal Uterine Route of delivery: Episiotomy description: None Laceration Description: None Specimen: No Quantitative Blood Loss (ml): 61 Anesthesia type: None Disposition: Floor Complications: No immediate complications [place] Baby Date of : 07/28/23 Time of : 16:41 Weeks of gestation at delivery: 38 gender: Male presentation: vertex position: Right Occiput Anterior Placenta delivery description: Spontaneous Cord Vessel Description: 3 Vessels score one minute: 8 score five minutes: 8
--- NOTE | 2023-07-28 16:54 | PM.DS ---
DS: Admitting Diagnosis Discharge Date 07/29/2023 Admitting Diagnosis term /gestational hypertension DS: Discharge Diagnosis Discharge Diagnosis (1) Gestational hypertension: Code(s): O13.9 - Gestational [-induced] hypertension without significant proteinuria, unspecified trimester Status: Acute (2) Term : Code(s): Z34.90 - Encounter for supervision of normal , unspecified, unspecified trimester Status: Acute DS: Summary Hospital Course Reason for hospitalization: patient was admitted on 07/28/2023 for induction of labor at38+ weeks gestation with gestational hypertension Hospital Course: after an uncomplicated vaginal delivery on the 07/28/2023, her hospital course was unremarkable. She remained afebrile. She was up, voiding without difficulty, eating regular diet, ambulating, in general without complaints. Blood pressures appeared stable Time Spent with Patient Time attestation: Total time spent providing and/or coordinating discharge services: Exam Const: General: cooperative, healthy appearing and comfortable Nutritional Appearance: average body habitus Orientation/consciousness: oriented to person, oriented to place and oriented to time HENMT: Head: normal to inspection Resp: Effort & Inspection: normal respiratory effort Cardio: Rate: regular rate Rhythm: regular rhythm Heart sounds: S1 normal heart sound present and S2 normal heart sound present GI: Inspection: normal to inspection DS: Data Data Completed and Pending Labs on day of discharge: Labs from last 24 hours 07/28/23 05:05 WBC 5.7 RBC 4.10 L Hgb 10.2 L Hct 32.3 L MCV 78.8 L MCH 24.9 L MCHC 31.6 L RDW 14.2 Plt Count 226 MPV 8.9 Immature Gran % (Auto) 0.5 Neut % (Auto) 75.6 H Lymph % (Auto) 14.4 L [place] % (Auto) 9.1 H Eos % (Auto) 0.2 Baso % (Auto) 0.2 Lymph # (Auto) 0.82 L [place] # (Auto) 0.5 Eos # (Auto) 0.0 Baso # (Auto) 0.0 Abs Immat Gran (auto) 0.03 Absolute Neuts (auto) 4.3 Absolute Nucleated RBC 0.000 Nucleated RBC % 0.0 Sodium 136 L Potassium 3.8 Chloride 109 H Carbon Dioxide 19 L Anion Gap 8 BUN 8 D Creatinine 0.40 L Estim Creat Clear Calc 202 Estimated GFR > 60 Glucose 86 Uric Acid 5.2 Calcium 9.3 Total Bilirubin 0.5 AST 27 ALT 20 Alkaline Phosphatase 152 H Total Protein 7.0 Albumin 3.8 RPR Pending Blood Type B Positive Antibody Screen Negative Discharge Plan Discharge Attending physician on discharge: Reilly Soliz Discharging Clinician: Reilly Soliz Patient Disposition: Home, Self-Care Activity: may shower, no straining and pelvic rest Diet: heart healthy Patient Instructions: Antibiotic Form Stand Alone Forms: General Discharge Information Follow-up/Referrals: Reilly Soliz MD [Physician] - Discharge Medications: Continued Classic 28 mg iron- 800 mcg Tablet 1 tablet PO DAILY labetalol 100 mg tablet 100 mg PO Q12H Qty: 60 0RF Date of admission: 07/28/23 04:47 Primary Care Provider: PHYSICIAN,AUDIT SPECIALIST Admitting Provider: Reilly Soliz Attending physician on admission: Reilly Soliz Condition: Stable
[2023-07-28] MEDS: OXYTOCIN 30 UNITS/NS 500 ML 30 UNITS/500 ML BAG 125 UNITS IV CONT (17:12)
[2023-07-28] MEDS: WITCH HAZEL 40 PADS 1 PAD TOPICAL (18:41)
[2023-07-28] MEDS: BENZOCAINE 20% AER SPR (*SP) 56 GM CAN 1 SPRAY TOPICAL (18:41)
--- NOTE | 2023-07-28 18:52 | PC.NURSE ---
Patient transferred to post room #290 via (ambulation). Support person present. Oriented to unit, room, information board, rooming in, admission packet and security measures. Patient verbalizes understanding.
[2023-07-28 21:01] LABS: Rapid Plasma Reagin Non-Reactive (NonReactive)
[2023-07-29 00:42] VITALS: BP 126/79; PULSE 79; RESP 18; TEMP 36.7; O2SAT 98
[2023-07-29 05:26] VITALS: BP 143/92; PULSE 78; RESP 20; TEMP 36.8; O2SAT 99
--- NOTE | 2023-07-29 06:20 | P.PNOB_ITS ---
OB - PN: Subj Subjective Date/time seen: 07/29/23 06:20 Patient comments: no complaints and pain well controlled baby status: doing well and nursing well OB - PN: Obj Data Labs 07/28/23 05:05 07/28/23 05:05 Labs: Laboratory Results - last 24 hr 07/28/23 05:05 RPR Non-reactive Blood Type B Positive Antibody Screen Negative OB - PN A/P Plan day: 1 Plan: routine care, discharge home and follow up 6 weeks Time Spent With Patient Time: Total time spent is greater than 50% in coordination of care (as documented) at patient's floor/unit and/or counseling patient: Time with patient: less than 15 minutes Exam Resp: Effort & Inspection: normal respiratory effort Cardio: Rate: regular rate Rhythm: regular rhythm Heart sounds: S1 nor mal heart sound present and S2 normal heart sound present GI: Inspection: normal to inspection
[2023-07-29] MEDS: DOCUSATE SODIUM 100 MG CAPSULE PO ×2 (07:21→16:20)
[2023-07-29] MEDS: POLYSACCHARIDE IRON COMPLEX 150 MG CAPSULE PO ×2 (07:21→16:19)
[2023-07-29] MEDS: MULTIVIT/MIN/PREN/FOL AC/IRON TABLET 1 TAB PO (07:21)
[2023-07-29 08:19] LABS: Hematocrit 28.9 % (37.0-47.0); Hemoglobin 9.2 g/dL (12.0-15.0)
[2023-07-29 08:35] VITALS: BP 130/92; PULSE 72; RESP 16; TEMP 37.4; O2SAT 99
--- NOTE | 2023-07-29 12:09 | PC.NURSE ---
115 Mother verbalizes she is able to independently latch with appropriate positioning and alignment. She denies any nipple discomfort and is responsively . Infant is currently meeting outcomes for weight, output, jaundice, blood sugar and feeding frequencies of 8-12 times in 24 hours. Mother declines any additional assistance or education at this time. Mother is encouraged to call for assistance if her doesn?t latch, pain with latching, questions or concerns. Mother voiced understanding of information shared along with the mom/baby guide for an additional resource. Reported to the Primary RN.
[2023-07-29] MEDS: TETANUS,DIPHTHERIA,AC PERTUSSIS ADULT (0.5 ML) BOOSTRIX IM (12:14)
--- NOTE | 2023-07-29 12:18 | PC.NURSE ---
0945 Introductions were made, then consulted with patient to assess needs related to . Mother led the conversation with her?plans to feed?her and the?experience so far. Encouraged understanding of the benefits of skin to skin (demonstrating unwrapping infant and placing upright on her chest), stimulating with massage touch, changing positions to encourage wakefulness, how to watch for early feeding cues, responsive feeding, feeding on demand (aiming for 8-12 times in 24 hours, about every 2-3 hours), milk production, building/maintaining a milk supply, duration of feeding, signs of adequate intake/output and how to record on the feeding sheet. Mother works well with her with encouragement and education. Reviewed positioning and ear, shoulder, hip alignment, supporting the breast to facilitate a deep latch, asymmetrical latch (off-center), leading with the chin with a big, open, wide gape and body close to mother. Mother verbalizes she is able to independently latch infant with appropriate positioning and alignment. She denies any nipple discomfort and is responsively . Mother verbalizes she is feeding baby at the breast and then gives at least 15 cc of formula after per the physician's orders. Infant is currently meeting outcomes for weight, output, jaundice, blood sugar and feeding frequencies of 8-12 times in 24 hours. Reviewed comfort measures of healing with a warm, wet washcloth to rinse breast, then leave open to air-dry, good handwashing when or touching the breast/nipples to prevent infection. Mother voiced understanding of skin to skin, stimulating with massage touch, responsive feedings, hand expressed colostrum, talking to infant to encourage if it has been 2 -2.5 hours since the start of the last , to call if does not latch, or if there is discomfort with . Resources used for education were facilitated with the booklet /mom and baby guide. Mother declines any additional assistance or education at this time. Mother is encouraged to call for assistance if her infant doesn?t latch, pain with latching, questions or concerns. Mother voiced understanding of information shared along with the mom/baby guide for an additional resource. Reported to the Primary RN.
[2023-07-29 12:30] VITALS: BP 140/85; PULSE 78; RESP 16; TEMP 36.9; O2SAT 99
[2023-07-29 16:00] VITALS: BP 147/83; PULSE 83; RESP 16; O2SAT 100
[2023-08-01 10:49] VITALS: BP 133/93; PULSE 82; RESP 20; TEMP 36.6; O2SAT 98
== END 2023-07-29 17:40 | disposition home or self-care (01) | DRG 807 ==
LOC: ANHLDR 16:57 → ANHOB2 19:01
PROVIDERS: Admitting Provider Obstetrics & Gynecology; Visit Provider Obstetrics & Gynecology
DX: O13.4 Gestational [pregnancy-induced] hypertension without significant proteinuria, complicating childbirth (principal); Z37.0 Single live birth; Z3A.38 38 weeks gestation of pregnancy
CPT/HCPCS: 36415; 80053; 84550; 85014; 85018; 85025; 86592; 86850; 86900; 86901; 90715; A9270; J2590; J7030; J7120